=== PATIENT | female | born 1995 | race American Indian/Alaskan Native ===

== ENCOUNTER 2020-03-27 20:35 | Emergency (ER) | payer OTHER ==
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
== END 2020-03-27 22:38 | disposition home or self-care (01) ==
LOC: ED 20:35
DX: S39.012A Strain of muscle, fascia and tendon of lower back, initial encounter (principal); S16.1XXA Strain of muscle, fascia and tendon at neck level, initial encounter; R51 Headache; J45.909 Unspecified asthma, uncomplicated; Z79.899 Other long term (current) drug therapy; V49.69XA Unspecified car occupant injured in collision with other motor vehicles in traffic accident, initial encounter; Y93.89 Activity, other specified; Y92.488 Other paved roadways as the place of occurrence of the external cause; Y99.8 Other external cause status
CPT/HCPCS: 99282